=== PATIENT | male | born 1995 | race Two or more races ===

== ENCOUNTER 2018-03-07 18:45 | Inpatient (IN) | payer OTHER ==
[~2018-03-07] VITALS: Ht 167.6 cm; Wt 71.1 kg
[2018-03-07] MEDS ORDERED: IPRATROPIUM BROM 0.5 MG/2.5ML INH SOL NEB ONE (19:15)
[2018-03-07] MEDS ORDERED: ALBUTEROL SULF 2.5 MG/0.5ML(0.5%) NEB SOLN NEB ONE (19:15)
[2018-03-07] MEDS ORDERED: IPRATROPIUM BROM 0.5 MG/2.5ML INH SOL HHN ONE (19:30)
[2018-03-07] MEDS ORDERED: TERBUTALINE SULFATE 1 MG/ML 1ML VIAL SC ONE (19:30)
[2018-03-07] MEDS ORDERED: methylPREDNISolone SOD SUCC 125 MG/2 ML VL IV ONE (19:30)
[2018-03-07] MEDS ORDERED: SODIUM CHLORIDE 0.9% 1,000 ML IV ONE (19:30)
[2018-03-07] MEDS ORDERED: ALBUTEROL SULF 2.5 MG/0.5ML(0.5%) NEB SOLN HHN ONE (19:30)
[2018-03-07 19:41] LABS: Basophils # (auto) 0.1 uL; Basophils % (auto) 0.4 % (0.0-2.0); Eosinophils # (auto) 0.4 uL; Eosinophils % (auto) 2.2 % (0.0-7.0); Hematocrit 47.7 % (41.0-53.0); Hemoglobin 16.2 g/dL (13.5-17.5); Lymphocytes # (auto) 1.2 uL; Lymphocytes % (auto) 7.1 % (10.0-50.0); Mean Corpuscular Hemoglobin 29.7 pg (28.0-32.0); Mean Corpuscular Volume 87.4 fL (80.0-100.0); Monocytes # (auto) 0.6 uL; Neutrophils % (auto) 86.3 % (37.0-80.0); Nucleated Red Blood Cells % 0.1 %; Platelet Count (auto) 275 10^3/uL (140-450); Red Blood Cells 5.46 10^6/uL (4.5-5.90); Red Cell Distribution Width 12.7 % (11.8-14.3); White Blood Cell 16.2 10^3/uL (4.4-10.8)
[2018-03-07 19:55] LABS: Albumin 4.5 g/dL (3.4-5.0); BUN/Creatinine Ratio 18.6; Bilirubin, Total 0.4 mg/dL (0.2-1.0); Calcium 8.8 mg/dL (8.5-10.1); Potassium 3.6 mmol/L (3.5-5.1); Total Protein 8.6 g/dL (6.4-8.2)
[2018-03-07 21:20] LABS: Urine Bacteria NONE SEEN /hpf (None Seen); Urine Blood Negative /uL (Negative); Urine Mucus FEW (None Seen); Urine Specific Gravity 1.024 (1.001-1.035); Urine WBC 4 /hpf (0 - 3)
[2018-03-07 22:15] VITALS: BP 145/79
[2018-03-07 22:47] VITALS: BP 145/79
[2018-03-07] MEDS ORDERED: ALBU2TAB4 PO (22:50)
[2018-03-08] MEDS ORDERED: LORazepam 2MG/ML-1ML VIAL IV PRN (01:30)
[2018-03-08] MEDS ORDERED: ACETAMINOPHEN 500 MG TAB PO PRN (01:30)
[2018-03-08] MEDS ORDERED: MORPHINE SULFATE 4 MG/ML SYR/VIAL IV PRN (01:30)
[2018-03-08] MEDS ORDERED: ONDANSETRON HCL 4 MG/2 ML VIAL IV PRN (01:30)
[2018-03-08] MEDS ORDERED: HYDROcodone-ACET 5/325MG TAB PO PRN (01:30)
[2018-03-08] MEDS ORDERED: AZITHROMYCIN 500MG/ 250ML 250 ML IV ONE (01:30)
[2018-03-08] MEDS: IPRATROPIUM BROM 0.5 MG/2.5ML INH SOL NEB SCH ×4 (01:56→14:39)
[2018-03-08] MEDS: ALBUTEROL SULF 2.5 MG/0.5ML(0.5%) NEB SOLN NEB SCH ×4 (01:56→14:39)
[2018-03-08] MEDS ORDERED: AZITHROMYCIN 500MG/ 250ML 200 ML IV SCH (02:00)
[2018-03-08] MEDS ORDERED: methylPREDNISolone SOD SUCC 40 MG/ML VL ONE (02:10)
[2018-03-08] MEDS ORDERED: methylPREDNISolone SOD SUCC 40 MG/ML VL IV ONE (02:15)
[2018-03-08 05:36] VITALS: BP 133/78
[2018-03-08] MEDS: methylPREDNISolone SOD SUCC 40 MG/ML VL IV SCH ×3 (05:52→18:00)
[2018-03-08 08:39] VITALS: BP 132/74
[2018-03-08] MEDS ORDERED: AZITHROMYCIN 250 MG TAB PO SCH (10:00)
[2018-03-08 13:00] VITALS: BP 125/66
[2018-03-08 13:26] VITALS: BP 132/74
[2018-03-08 14:55] VITALS: BP 125/66
[2018-03-09] MEDS ORDERED: AZITHROMYCIN 500MG/ 250ML 200 ML IV SCH (22:00)
== END 2018-03-08 18:50 | disposition home or self-care (01) | DRG 203 ==
LOC: ER 18:45 → TELE 18:46 → TELE-EAST 21:55
PROVIDERS: ADMIT Nurse Practitioner Family; ATTEND Internal Medicine
DX: J45.902 Unspecified asthma with status asthmaticus (principal); F12.90 Cannabis use, unspecified, uncomplicated
CPT/HCPCS: 36415; 71045; 80053; 81001; 85025; 87040; 94010; 94640; 96361; 96365; 96375

== ENCOUNTER 2021-08-07 17:50 | Emergency (ER) | payer MEDICAID, OTHER ==
[~2021-08-07] VITALS: Ht 175.3 cm; Wt 77.1 kg
[~2021-08-07 17:50] MED LIST: ALBU2TAB4 PO
[2021-08-07 18:18] VITALS: BP 127/82
[2021-08-07] MEDS ORDERED: methylPREDNISolone SOD SUCC 125 MG/2 ML VL IV ONE (18:45)
[2021-08-07 19:09] LABS: Basophils # (auto) 0 10 ^3/uL (0-0.2); Basophils % (auto) 0.3 % (0.0-2.0); Eosinophils # (auto) 0.2 10 ^3/uL (0-0.8); Eosinophils % (auto) 2.2 % (0.0-7.0); Hematocrit 43.7 % (41.0-53.0); Hemoglobin 15.1 g/dL (13.5-17.5); Lymphocytes # (auto) 2.1 10 ^3/uL (0.4-5.4); Lymphocytes % (auto) 19.6 % (10.0-50.0); Mean Corpuscular Hemoglobin 29.7 pg (28.0-32.0); Mean Corpuscular Hgb Conc. 34.4 g/dL (32.0-36.0); Mean Corpuscular Volume 86.2 fL (80.0-100.0); Monocytes # (auto) 0.9 10 ^3/uL (0-1.3); Monocytes % (auto) 8.4 % (0.0-12.0); Neutrophils # (auto) 7.4 10 ^3/uL (1.6-8.6); Neutrophils % (auto) 69.5 % (37.0-80.0); Nucleated Red Blood Cells % 0.1 %; Red Blood Cells 5.07 10^6/uL (4.5-5.90); White Blood Cell 10.7 10^3/uL (4.4-10.8)
[2021-08-07 19:20] LABS: Albumin 4.4 g/dL (3.4-5.0); BUN/Creatinine Ratio 19.6; Calcium 9.1 mg/dL (8.5-10.1)
[2021-08-07 19:22] LABS: Bilirubin, Total 0.5 mg/dL (0.2-1.0); Total Protein 8.3 g/dL (6.4-8.2)
[2021-08-07] MEDS ORDERED: IPRATROPIUM BROM 0.5 MG/2.5ML INH SOL NEB ONE (19:30)
[2021-08-07] MEDS ORDERED: ALBUTEROL SULF 2.5 MG/0.5ML(0.5%) NEB SOLN NEB ONE (19:30)
[2021-08-07 19:32] LABS: Potassium 2.9 mmol/L (3.5-5.1)
[2021-08-07] MEDS ORDERED: predniSONE 20 MG TAB ONE (20:10)
[2021-08-07] MEDS ORDERED: predniSONE 20 MG TAB PO ONE (20:15)
== END 2021-08-07 20:42 | disposition left against medical advice (07) ==
LOC: EDBD 17:50 → ER 17:58
DX: J45.901 Unspecified asthma with (acute) exacerbation (principal); F17.210 Nicotine dependence, cigarettes, uncomplicated
CPT/HCPCS: 36415; 71045; 80053; 85025; 94640; 99284; J7512; J7644

== ENCOUNTER 2022-09-03 21:57 | Emergency (ER) | payer MEDICAID ==
[~2022-09-03] VITALS: Ht 162.6 cm; Wt 73.5 kg
[2022-09-03 22:01] VITALS: BP 114/76
[2022-09-03] MEDS ORDERED: IPRATROPIUM BROM 0.5 MG/2.5ML INH SOL NEB ONE (22:15)
[2022-09-03] MEDS ORDERED: ALBUTEROL SULF 2.5 MG/0.5ML(0.5%) NEB SOLN NEB ONE (22:15)
== END 2022-09-04 06:13 | disposition left against medical advice (07) ==
LOC: ER 22:04
DX: R06.02 Shortness of breath (principal); J45.909 Unspecified asthma, uncomplicated; Z53.21 Procedure and treatment not carried out due to patient leaving prior to being seen by health care provider
CPT/HCPCS: 94640; J7644